=== PATIENT | male | born 1990 | race Caucasian/White ===

== ENCOUNTER 2024-09-05 17:58 | Emergency (ER) | payer SELFPAY ==
[2024-09-05] MEDS: cefTRIAXone 1 GM, Lidocaine 1% 2.1 ML IM ONE (19:34)
[2024-09-05] MEDS: Lidocaine 2% Viscous Solution 15 ML UD PO ONE (19:37)
[2024-09-05] MEDS: Take Home: Acetaminophen/HYDROcodone 325-5 MG, 5 Tab Pack PO ONE (19:37)
[2024-09-05] MEDS: Take Home: Amoxicillin/Clavulanate K 875-125 MG Tab, 6 Tab Pack PO ONE (19:37)
== END 2024-09-05 19:53 | disposition home or self-care (01) ==
LOC: DL.ED 17:58
DX: K04.7 Periapical abscess without sinus (principal); F17.210 Nicotine dependence, cigarettes, uncomplicated; Z86.16 Personal history of COVID-19
CPT/HCPCS: 96372; 99283; A9270; J0696; 99282; J2003

== ENCOUNTER 2024-09-06 09:50 | Emergency (ER) | payer SELFPAY ==
[2024-09-06] MEDS: Take Home: Levofloxacin 500 MG Tab, 3 Tab Pack PO ONE (10:31)
[2024-09-06] MEDS: Take Home: metroNIDAZOLE 250 MG Tab, 8 Tab Pack PO ONE (10:31)
[2024-09-06] MEDS ORDERED: Thiamine 100 MG in Sodium Chloride 0.9% 100 ML IV ONE (11:11)
[2024-09-06] MEDS ORDERED: Lactated Ringers 1,000 ML IV SCH (11:15)
== END 2024-09-06 10:25 | disposition home or self-care (01) ==
LOC: DL.ED 09:50
DX: K04.7 Periapical abscess without sinus (principal); T36.0X5A Adverse effect of penicillins, initial encounter; Z88.0 Allergy status to penicillin; Z88.1 Allergy status to other antibiotic agents; Z86.16 Personal history of COVID-19
CPT/HCPCS: 99282; A9270; 99283